=== PATIENT | female | born 2000 | race Caucasian/White ===

== ENCOUNTER 2019-07-06 04:54 | Emergency (ER) | payer OTHER ==
[2019-07-06 06:36] LABS: HEMATOCRIT 41.5 % (37.0-47.0); HEMOGLOBIN 13.9 g/dl (12.0-16.0); IMMATURE GRANULOCYTES 0.4 % (0.0-5.0); MEAN CELL VOLUME 83.7 fL CALC (80.0-100.0); MEAN CORPUSCULAR HGB CONC 33.5 g/dL CAL (32.0-36.0); NEUT# 3.76 thou/uL (2.00-7.15); RED BLOOD COUNT 4.96 mill/uL (4.20-5.60); RED CELL DISTRI WIDTH 12.4 % (11.5-15.5)
[2019-07-06 06:36] LABS: URINE BILIRUBIN - DIPSTICK NEGATIVE (NEGATIVE); URINE BLOOD DIPSTICK NEGATIVE (NEGATIVE); URINE COLOR YELLOW; URINE GLUCOSE - DIPSTICK NEGATIVE (NEGATIVE); URINE KETONE NEGATIVE (NEGATIVE); URINE LEUK ESTERASE NEGATIVE (NEGATIVE); URINE NITRITE - DIPSTICK NEGATIVE (Negative); URINE PH 7.5 (4.5-8.0); URINE PROTEIN - DIPSTICK NEGATIVE (NEG-TRACE); URINE SPECIFIC GRAVITY 1.015; URINE UROBILINOGEN - DIPSTICK 0.2 E.U./dL (0.2)
[2019-07-06 06:51] LABS: ALBUMIN 4.5 g/dL (3.2-5.0); ALKALINE PHOSPHATASE 82 u/l (38-126); ANION GAP 12 (6-22 (CALC)); BILIRUBIN, TOTAL 0.3 mg/dL (0.0-1.4); BUN 10 mg/dL (7-17); BUN/CREATININE RATIO 15 (12-20 (CALC)); CARBON DIOXIDE 26 mmol/l (22-30); CHLORIDE 103 mmol/l (95-108); CREATININE 0.7 mg/dL (0.5-1.0); GFR > 60 ML/MIN (>=60 (CALC)); GFR FOR AFR.AMER. > 60 ML/MIN (>=60 (CALC)); POTASSIUM 3.9 mmol/l (3.5-5.1); SGOT/AST 21 u/l (14-36); SODIUM 137 mmol/l (137-146); TOTAL PROTEIN 7.7 g/dL (6.3-8.2)
[2019-07-06] MEDS ORDERED: NAPROXEN500 MG PO (06:58)
[2019-07-06 07:03] LABS: MYOGLOBIN 26 ng/mL (0 - 62)
[2019-07-06 07:35] VITALS: BP 125/76
== END 2019-07-06 07:35 | disposition home or self-care (01) | DRG 880 ==
LOC: ED 04:54
PROVIDERS: Emergency Medicine
DX: F41.9 Anxiety disorder, unspecified (principal); R07.89 Other chest pain